=== PATIENT | male | born 1990 | race Caucasian/White ===

== ENCOUNTER 2021-02-25 21:22 | Emergency (ER) | payer BC ==
[2021-02-25 21:49] VITALS: BP 164/99; PULSE 98; RESP 19; TEMP 98.3
[2021-02-25] MEDS ORDERED: PROPARACAINE 0.5% OPHTH DROPS 15 ML BTL LEFT EYE STA (22:31)
[2021-02-25] MEDS ORDERED: FLUORESCEIN STRIPS 1 MG STRIP LEFT EYE ONE (22:31)
[2021-02-25] MEDS ORDERED: MOXIFLOXACIN HCL 0.5% DROPS 3 ML BTL LEFT EYE ONE ×2 (22:55→23:30)
[2021-02-25] MEDS ORDERED: TOBRAMYCIN 0.3% OPHTH DROPS 5 ML BTL LEFT EYE STA (23:01)
--- NOTE | 2021-02-25 23:01 | ED ---
Eye Problem HPI - General Chief complaint: Eye Problems Stated complaint: foreign object l eye Time Seen by Provider: 02/25/21 22:31 Source: patient Mode of arrival: ambulatory - History of Present Illness Initial comments: 30 year-old male patient presents to the emergency department for evaluation of left eye discomfort. Patient believes he has a piece of steel in the eye. Pat ient states that he has tried to flush it out, get it out with wet q-tip, and use a magnet. States he can still see the metal. Denies any drainage from the eye. Denies any blurred or double vision. Denies fever or chills. States his last tetanus vaccine was given 4 years ago. Denies any other injuries or concerns. - Related Data Allergies Allergy/AdvReac Type Severity Reaction Status Date / Time No Known Allergies Allergy Verified 02/25/21 21:48 Review of Systems ROS Statement: Those systems with pertinent positive or pertinent negative responses have been documented in the HPI. ROS Other: All systems not noted in ROS Statement are negative. Past Medical History Past Medical History: No Reported History History of Any Multi-Drug Resistant Organisms: None Reported Past Surgical History: No Surgical Hx Reported Past Psychological History: No Psychological Hx Reported Smoking Status: Never smoker Past Alcohol Use History: None Reported Past Drug Use History: None Reported General Exam General appearance: alert, in no apparent distress, other (Physical well- developed, well-nourished adult male patient in no acute distress. Vital signs upon presentation are temperature 98.3F, pulse 98, respirations 19, blood pressure 164/99, pulse ox 98% on room air.) Eye exam: Present: PERRL, EOMI, conjunctival injection (Left), other (Wood's lamp examination with fluorescein stain was performed, did reveal foreign body to the cornea at 12:00. Negative Kenneth sign. No uptake of fluorescein.). Absent: normal appearance, scleral icterus, periorbital swelling Respiratory exam: Present: normal lung sounds bilaterally. Absent: respiratory distress, wheezes, rales, rhonchi, stridor Cardiovascular Exam: Present: regular rate, normal rhythm, normal heart sounds. Absent: systolic murmur, diastolic murmur, rubs, gallop, clicks Neurological exam: Present: alert, oriented X3, CN II-XII intact Psychiatric exam: Present: normal affect, normal mood Skin exam: Present: warm, dry, intact, normal color. Absent: rash Course Vital Signs 02/25/21 21:43 Temperature 98.3 F Pulse Rate 98 Respiratory 19 Rate Blood Pressure 164/99 O2 Sat by Pulse 98 Oximetry Procedures - Forgein Body Removal Eye Site: Left Location in eye(s): 12:00 Anesthetic Used: Proparacaine Eye Exam Technique: Torre Lamp Foreign Body Suspected: Metal Forgein Body Removal Technique: Cotton Swab, Algerbrush Remaining Debris: Yes Patient Tolerated: no complications Medical Decision Making - Medical Decision Making 30-year-old male patient presents for evaluation of foreign body to the left eye. Physical examination did reveal foreign body with rust ring to 12:00 on the cornea. Did remove foreign body with Smith brush, small amount of rust ring did remain. He'll be started on tobramycin drops. Instructed to follow-up with ophthalmology tomorrow. Return parameters were discussed in detail. He verbalizes understanding and agrees with this plan. My attending is Dr. Moore. Disposition Clinical Impression: Foreign body of left eye, Corneal rust ring of left eye Disposition: HOME SELF-CARE Condition: Good Instructions (If sedation given, give patient instructions): Eye Foreign Body (ED) Additional Instructions: Use and erratic eyedrop 4 times daily while awake. Follow-up with ophthalmology for recheck tomorrow. Return for any new, worsening, or concerning symptoms. Is patient prescribed a controlled substance at d/c from ED?: No Referrals: None,Stated [Primary Care Provider] - 1-2 days Nilay Baca MD [STAFF PHYSICIAN] - 1-2 days Time of Disposition: 23:01
== END 2021-02-25 23:38 | disposition home or self-care (01) ==
LOC: EC 21:22
DX: T15.02XA Foreign body in cornea, left eye, initial encounter (principal); W22.8XXA Striking against or struck by other objects, initial encounter
CPT/HCPCS: 65222; 99283

== ENCOUNTER 2023-06-28 22:21 | Emergency (ER) | payer BC ==
[2023-06-28] MEDS ORDERED: DIPH,PERTUS(ACELL)TETVAC-LF 0.5 ML VIAL IM ONE (22:41)
[2023-06-28] MEDS ORDERED: LIDOCAINE 1% INJ 10MG/ML (20 ML MDV) SQ ONE (22:41)
[2023-06-28 22:47] VITALS: BP 136/87; PULSE 87; RESP 16; TEMP 98.5
--- NOTE | 2023-06-28 23:33 | ED ---
General Adult HPI - General Chief complaint: Wound/Laceration Stated complaint: Lip laceration Time Seen by Provider: 06/28/23 22:34 Source: patient, RN notes reviewed Mode of arrival: ambulatory Limitations: no limitations - History of Present Illness Initial comments: 33-year-old male with no significant past medical history presents the emergency department with a chief complaint of facial laceration. Patient reports that he was playing hockey when hockey puck hit him in his symptoms. He is complaining of a lip laceration. Denies hitting his head, loss of consciousness. Denies dizziness, lightheadedness, headache or vision changes. Denies anticoagulant use. - Related Data Allergies Allergy/AdvReac Type Severity Reaction Status Date / Time No Known Allergies Allergy Verified 06/28/23 22:31 Review of Systems ROS Statement: Those systems with pertinent positive or pertinent negative responses have been documented in the HPI. ROS Other: All systems not noted in ROS Statement are negative. Past Medical History Past Medical History: No Reported History History of Any Multi-Drug Resistant Organisms: None Reported Past Surgical History: No Surgical Hx Reported Past Psychological History: No Psychological Hx Reported Smoking Status: Never smoker Past Alcohol Use History: None Reported Past Drug Use History: None Reported General Exam - General Exam Comments Initial Comments: General: Alert, in no acute distress Head: atraumatic normocephalic. Eyes PERRL, EOMI intact, mucous membranes moist , 1 cm laceration to upper lip. Teeth intact with no evidence of trauma Respiratory: Lungs clear to auscultation bilaterally Cardiovascular: Heart rate regular rate and rhythm Abdominal: Soft without guarding or rebound Extremities: Normal inspection with full range of motion and normal capillary refill Neuroogic: alert and oriented 3, CN II-XII intact, able to ambulate with steady gait Skin: warm dry and intact with normal color Limitations: no limitations Course Vital Signs 06/28/23 22:28 Temperature 98.5 F Pulse Rate 87 Respiratory 16 Rate Blood Pressure 136/87 O2 Sat by Pulse 99 Oximetry Procedures - Laceration Laceration #1 Indication: laceration Site: lip Size (cm): 1 Description: linear Depth: simple, single layer Anesthetic Used: lidocaine 1% Anesthesia Technique: local infiltration Amount (mls): 5 Pre-repair: wound explored, irrigated extensively Type of Sutures: vicryl Size of Sutures: 6-0 Number of Sutures: 3 Technique: simple, interrupted Complications: pain, bleeding, nerve injury Patient Tolerated Procedure: well, no complications Medical Decision Making - Medical Decision Making Was pt. sent in by a medical professional or institution (TAYLOR Millan, [employer]NAGER, urgent care, hospital, or alf...) When possible be specific @ -[No] Did you speak to anyone other than the patient for history (EMS, parent, family, police, friend...)? What history was obtained from this source @ -[No] Did you review nursing and triage notes (agree or disagree)? Why? @ -[I reviewed and agree with nursing and triage notes] Were old charts reviewed (outside hosp., previous admission, EMS record, old EKG, old radiological studies, urgent care reports/EKG's, alf records)? Report findings @ -[No old charts were reviewed] Differential Diagnosis (chest pain, altered mental status, abdominal pain women, abdominal pain men, vaginal bleeding, weakness, fever, dyspnea, syncope, h eadache, dizziness, GI bleed, back pain, seizure, CVA, palpatations, mental health, musculoskeletal)? @ -[not applicable] EKG interpreted by me (3pts min.). @ -[As above] X-rays interpreted by me (1pt min.). @ -[None done] CT interpreted by me (1pt min.). @ -[None done] U/S interpreted by me (1pt. min.). @ -[None done] What testing was considered but not performed or refused? (CT, X-rays, U/S, labs)? Why? @ -[None] What meds were considered but not given or refused? Why? @ -[None] Did you discuss the management of the patient with other professionals (professionals i.e. TAYLOR Millan, [employer]OP[employer] MANAGER, lab, RT, psych nurse, social media assistant, crank hand, teacher, state wildlife officer, ed case manager)? Give summary @ -[No] Was smoking cessation discussed for >3mins.? @ -[No] Was critical care preformed (if so, how long)? @ -[No] Were there social determinants of health that impacted care today? How? (Homelessness, low income, unemployed, alcoholism, drug addiction, transportation, low edu. Level, literacy, decrease access to med. care, intermediate, rehab)? @ -[No] Was there de-escalation of care discussed even if they declined (Discuss DNR or withdrawal of care, Hospice)? DNR status @ -[No] What co-morbidities impacted this encounter? (DM, HTN, Smoking, COPD, CAD, Cancer, CVA, ARF, Chemo, Hep., AIDS, mental health diagnosis, sleep apnea, morbid obesity)? @ -[None] Was patient admitted / discharged? Hospital course, mention meds given and route, prescriptions, significant lab abnormalities, going to OR and other pertinent info. @ -[. This is a 33-year-old male who presents emergency Department with lip laceration. Patient had a thorough history and physical exam performed. He had 3 sutures placed which he tolerated well. Return precautions discussed at length. Patient updated on tetanus. Case was discussed with Dr. Rice [facility] who agrees with plan of care Undiagnosed new problem with uncertain prognosis? @ -[No] Drug Therapy requiring intensive monitoring for toxicity (Heparin, Nitro, Insulin, Cardizem)? @ -[No] Were any procedures done? @ -[No] Diagnosis/symptom? @ -Lip Laceration Acute, or Chronic, or Acute on Chronic? - Acute Uncomplicated (without systemic symptoms) or Complicated (systemic symptoms)? @ -Uncomplicated Side effects of treatment? @ -[No] Exacerbation, Progression, or Severe Exacerbation? @ -[No] Poses a threat to life or bodily function? How? (Chest pain, [place], [place], pneumonia, PE, COPD, DKA, ARF, appy, cholecystitis, CVA, Diverticulitis, Homicidal, Suicidal, threat to staff... and all critical care pts) @ -Low likelihood Disposition Clinical Impression: Laceration Disposition: HOME SELF-CARE Condition: Stable Instructions (If sedation given, give patient instructions): Laceration (ED), Care For Your Absorbable Stitches (ED), Facial Laceration (ED) Is patient prescribed a controlled substance at d/c from ED?: No Referrals: None,Stated [Primary Care Provider] - 1-2 days Forms: Area PCPs Time of Disposition: 23:33
== END 2023-06-28 23:52 | disposition home or self-care (01) ==
LOC: EC 22:21
DX: S01.511A Laceration without foreign body of lip, initial encounter (principal); X58.XXXA Exposure to other specified factors, initial encounter; Y93.22 Activity, ice hockey
CPT/HCPCS: 90715; 99282; 96372 ×2; 12011; J2001